=== PATIENT | male | born 1965 | race American Indian/Alaskan Native ===

== ENCOUNTER 2017-07-28 23:56 | Inpatient (IN) | payer OTHER ==
[2017-07-29 01:44] LABS: BUN/Creatinine Ratio 13; Blood Urea Nitrogen 14 mg/dL (9-20); Hemolysis Index 4
[2017-07-29 01:51] LABS: Basophils % (Auto) 0.4 % (0.0-1.8); Eosinophils % (Auto) 0.4 % (0.0-4.3); Hematocrit 40.2 % (35.5-45.6); Hemoglobin 13.7 gm/dl (11.8-15.2); Lymphocytes # (Auto) 2.2 K/mm3 (1.2-5.4); Mean Corpuscular HGB Conc 34 % (32-34); Mean Corpuscular Hemoglobin 33 pg (28-32); Mean Corpuscular Volume 96 fl (84-94); Monocytes # (Auto) 0.4 K/mm3 (0.0-0.8); Monocytes % (Auto) 7.2 % (0.0-7.3); Platelet Count 205 K/mm3 (140-440); Red Blood Count 4.21 M/mm3 (3.65-5.03); Red Cell Distribution Width 13.8 % (13.2-15.2)
[2017-07-29] MEDS ORDERED: NACL 0.9% 1000 ML 1,000 ML IV ONE (01:55)
[2017-07-29] MEDS ORDERED: D50W (25GM) Syringe IV PRN (04:01)
--- NOTE | 2017-07-29 04:10 | Emergency Department Report ---
HPI - General Chief Complaint: Hyperglycemia Time Seen by Provider: 07/29/17 03:54 - HPI HPI: The patient is a 52-year-old male with a history of diabetes, who presents for evaluation of abdominal pain, nausea, vomiting. The patient reports 6 days of progressive generalized abdominal pain, crampy in quality, moderate severity, exacerbated with retching, and associated with multiple episodes of nausea and nonbilious, nonbloody emesis. He also has experienced polyuria, severe thirst, and generalized weakness. The patient denies fever, headache, neck pain, paresthesias, focal motor weakness, blurry vision, ear pain, tinnitus, chest pain, hemoptysis, dyspnea. ED Past Medical Hx - Past Medical History Previous Medical History?: Yes Hx Diabetes: Yes Additional medical history: A fib, hyperlipidemia - Surgical History Past Surgical History?: No - Social History Smoking Status: Never Smoker Substance Use Type: None ED Review of Systems ROS: Stated complaint: POSS DKA,ABD PAIN Other details as noted in HPI Constitutional: reports weakness denies: fever ENT: denies: throat or neck pain Respiratory: denies: cough, shortness of breath Cardiovascular: denies: chest pain Endocrine: denies unexplained weight loss or gain Gastrointestinal: reports abdominal pain, nausea Genitourinary: denies: dysuria Musculoskeletal: denies: leg swelling Skin: denies: rash Neurological: denies: headache Hematological/Lymphatic: denies: easy bleeding or easy bruising Psych: denies sadness or hopelessness Physical Exam - Physical Exam Vital Signs: Vital Signs 07/29/17 00:34 Temperature 98.0 F Pulse Rate 92 H Respiratory 17 Rate Blood Pressure 105/73 O2 Sat by Pulse 100 Oximetry Physical Exam: General: well-nourished, well-developed, no acute distress Head: Normocephalic, atraumatic Eyes: normal sclera ENT: Mucous membranes are pale and dry Neck: No neck stiffness, no cervical adenopathy Respiratory: Breath sounds equal bilaterally, no wheezing, rales, or rhonchi Cardio: S1 and S2 present, no murmurs, rubs, gallops, capillary refill is delayed Abdomen: Normoactive bowel sounds, soft abdomen, generalized tenderness to palpation present, no rigidity, no guarding or rebound tenderness Chest WALL/Back: No tenderness to palpation of the chest wall, no CVA tenderness with percussion Musc: No pitting edema Skin: No rash Neuro: no facial drooping, normal speech Psych: Normal affect ED Course Vital Signs 07/29/17 00:34 Temperature 98.0 F Pulse Rate 92 H Respiratory 17 Rate Blood Pressure 105/73 O2 Sat by Pulse 100 Oximetry ED Medical Decision Making - Lab Data Result diagrams: 07/29/17 00:59 07/29/17 00:59 - Medical Decision Making The patient was seen and examined by myself. The patient is placed on a mh teacher and continuous pulse ox. On initial evaluation, the patient was found to be in no distress. Evaluation orders were placed. Per EMS, the patient was found to have a blood sugar of 700 at the [place] urgent care facility that he was transferred to hear from. Lab results here reveal elevated blood sugar 274, increased anion gap, low bicarbonate, and low pH of 7.22, consistent with diabetic ketoacidosis. The patient is continued on an insulin infusion for treatment of DKA. The on-call [facility] physician Dr. Cervantes was contacted. She agreed to admission of the patient to this Hospital facility. The on-call hospitalist service was contacted. They agreed to admit the patient for further treatment and close monitoring. The ED admit order was placed. The patient was admitted in guarded condition. Critical care attestation.: If time is entered above; I have spent that time in minutes in the direct care of this critically ill patient, excluding procedure time. ED Disposition Clinical Impression: Dehydration, Acute generalized abdominal pain DKA (diabetic ketoacidosis) Qualifiers: Diabetes mellitus type: type 2 Diabetes mellitus complication detail: without coma Qualified Code(s): E11.10 - Type 2 diabetes mellitus with ketoacidosis without coma Disposition: OP ADMIT IP TO THIS HOSP Is pt being admited?: Yes Does the pt Need Aspirin: Yes Condition: Serious Instructions: Diabetic Ketoacidosis (ED) Referrals: [facility] [Other] - 3-5 Days Time of Disposition: 04:03
[2017-07-29 04:47] LABS: Magnesium 1.9 mg/dL (1.7-2.3)
[2017-07-29 04:48] LABS: BUN/Creatinine Ratio 13; Blood Urea Nitrogen 13 mg/dL (9-20); Calcium 8.5 mg/dL (8.4-10.2); Hemolysis Index 9
[2017-07-29] MEDS ORDERED: TYLENOL PO PRN (04:51)
[2017-07-29] MEDS ORDERED: ZOFRAN IV PRN (04:51)
[2017-07-29] MEDS ORDERED: DULCOLAX PR PRN (04:51)
[2017-07-29] MEDS ORDERED: MILK OF MAGNESIA PO PRN (04:51)
[2017-07-29 04:53] LABS: Alanine Aminotransferase 11 units/L (7-56); Albumin 3.4 g/dL (3.9-5); Lipase 25 units/L (13-60)
[2017-07-29] MEDS ORDERED: NACL 0.9% 1000 ML 2,000 ML IV SCH (05:00)
[2017-07-29] MEDS ORDERED: NovoLIN R 100 UNITS in NACL 0.9% 99 ML IV SCH (05:00)
[2017-07-29] MEDS ORDERED: D5W/0.45% NACL/KCL 20 MEQ 20 MEQ/1,000 ML BAG IV SCH (05:00)
--- NOTE | 2017-07-29 05:03 | History and Physical Report ---
History of Present Illness Date of examination: 07/29/17 Chief complaint: Nausea and vomiting History of present illness: 52-year-old -N[place]alese male with past medical history significant for diabetes mellitus, atrial fibrillation presented to the emergency department complaining of nausea and vomiting for the past 2 weeks. Patient has been taking his insulin as prescribed, but patient has been drinking soda and Gatorade thinking, to replace that that he lose through vomiting. Patient has been polyuric and has polydipsia. Patient denied abdominal pain, fever, dysuria , chest pain. Patient is a [place] patient and [place] agreed with admission to our service. In the emergency department workup was done and patient was found to be in DKA. He was started with DKA protocol and will be admitted to ICU. REVIEW OF SYSTEMS: GENERAL: no weight change, no fatigue, no fever HEAD: no head ache EYES: no blurry vision, no acute visual loss EARS: no hearing loss, no discharge, no earache NOSE: no stuffiness, no sneezing, no discharge MOUTH, THROAT AND NECK: no bleeding gums, no sore throat, no swollen neck CARDIAC: no palpitations, no dyspnea on exertion, no orthopnea, no PND, no edema , no chest pain RESPIRATORY: no shortness of breath, no wheeze, no cough, no sputum, no hemoptysis, no asthma GI: As stated in the HPI. URINARY: no change in frequency, no urgency, no polyuria, no hematuria, no incontinence MUSCULOSKELETAL: no muscle weakness, no pain, no joint stiffness NEUROLOGIC: no loss of sensation/numbness, no tingling, no tremors, no weakness/ paralysis HEMATOLOGIC: no anemia, no easy bruising SKIN: no rashes ENDOCRINE: no heat/cold intolerance, no polyuria, no polydipsia, no thyroid problems, +diabetes PSYCHIATRIC: no anxiety, no depression, no suicidal ideations Past History Past Medical History: atrial fib, diabetes Past Surgical History: No surgical history Social history: full code. denies: smoking, alcohol abuse, prescription drug abuse, IV drug use Family history: no significant family history Medications and Allergies Allergies Allergy/AdvReac Type Severity Reaction Status Date / Time No Known Allergies Allergy Unverified 07/29/17 00:55 Active Meds: Active Medications Acetaminophen (Tylenol) 650 mg PO Q4H PRN PRN Reason: Pain MILD(1-3)/Fever >100.5/RECINOS Bisacodyl (Dulcolax) 10 mg MD QDAY PRN PRN Reason: Constipation unrelieved by MOM Dextrose (D50w (25gm) Syringe) 0 ml IV PRN PRN PRN Reason: Hypoglycemia Heparin Sodium (Porcine) (Heparin) 5,000 unit SUB-Q Q8HR MARLENI Potassium Chloride/Dextrose/Sod Cl (D5w/0.45% Nacl/Kcl 20 Meq) 20 meq in 1,000 mls @ 125 mls/hr IV DIRECT MARLENI Insulin Human Regular 100 (units/ Sodium Chloride) 100 mls @ 1 mls/hr IV TITR MARLENI; 1 UNITS/HR PRN Reason: Protocol Sodium Chloride (Nacl 0.9% 1000 Ml) 2,000 mls @ 999 mls/hr IV DIRECT MARLENI Magnesium Hydroxide (Milk Of Magnesia) 30 ml PO Q4H PRN PRN Reason: Constipation Ondansetron HCl (Zofran) 4 mg IV Q8H PRN PRN Reason: N/V unrelieved by Reglan Exam - Physical Exam Narrative exam: Not in cardiopulmonary distress. The patient appeared well nourished and normally developed. Vital signs as documented. Head exam is unremarkable. No scleral icterus . Neck is without jugular venous distension, thyromegaly, or carotid bruits. Lungs are clear to auscultation. Cardiac exam reveals irregular rate and Rhythm. Abdominal exam reveals normal bowel sounds, no masses, no organomegaly and no aortic enlargement. Extremities are nonedematous and both femoral and pedal pulses are normal. 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 No focal weakness. - Constitutional Vitals: Temp Pulse Resp BP Pulse Ox 98.0 F 84 15 105/72 98 07/29/17 00:34 07/29/17 04:30 07/29/17 04:30 07/29/17 04:30 07/29/17 04:30 Results - Labs CBC & Chem 7: 07/29/17 00:59 07/29/17 04:08 Labs: Laboratory Last Values WBC 5.7 K/mm3 (4.5-11.0) 07/29/17 00:59 RBC 4.21 M/mm3 (3.65-5.03) 07/29/17 00:59 Hgb 13.7 gm/dl (11.8-15.2) 07/29/17 00:59 Hct 40.2 % (35.5-45.6) 07/29/17 00:59 MCV 96 fl (84-94) H 07/29/17 00:59 MCH 33 pg (28-32) H 07/29/17 00:59 MCHC 34 % (32-34) 07/29/17 00:59 RDW 13.8 % (13.2-15.2) 07/29/17 00:59 Plt Count 205 K/mm3 (140-440) 07/29/17 00:59 Lymph % (Auto) 38.0 % (13.4-35.0) H 07/29/17 00:59 [place] % (Auto) 7.2 % (0.0-7.3) 07/29/17 00:59 Eos % (Auto) 0.4 % (0.0-4.3) 07/29/17 00:59 Baso % (Auto) 0.4 % (0.0-1.8) 07/29/17 00:59 Lymph # 2.2 K/mm3 (1.2-5.4) 07/29/17 00:59 [place] # 0.4 K/mm3 (0.0-0.8) 07/29/17 00:59 Eos # 0.0 K/mm3 (0.0-0.4) 07/29/17 00:59 Baso # 0.0 K/mm3 (0.0-0.1) 07/29/17 00:59 Seg Neutrophils % 54.0 % (40.0-70.0) 07/29/17 00:59 Seg Neutrophils # 3.1 K/mm3 (1.8-7.7) 07/29/17 00:59 VBG pH 7.227 (7.320-7.420) L 07/29/17 00:59 Sodium 141 mmol/L (137-145) 07/29/17 04:08 Potassium 4.3 mmol/L (3.6-5.0) 07/29/17 04:08 Chloride 103.6 mmol/L (98-107) 07/29/17 04:08 Carbon Dioxide 19 mmol/L (22-30) L 07/29/17 04:08 Anion Gap 23 mmol/L 07/29/17 04:08 BUN 13 mg/dL (9-20) 07/29/17 04:08 Creatinine 1.0 mg/dL (0.8-1.5) 07/29/17 04:08 Estimated GFR > 60 ml/min 07/29/17 04:08 BUN/Creatinine Ratio 13 % 07/29/17 04:08 Glucose 234 mg/dL (75-100) H 07/29/17 04:08 POC Glucose 244 (70-105) H 07/29/17 02:54 Calcium 8.5 mg/dL (8.4-10.2) 07/29/17 04:08 Phosphorus 2.50 mg/dL (2.5-4.5) 07/29/17 04:08 Magnesium 1.90 mg/dL (1.7-2.3) 07/29/17 04:08 Total Bilirubin 0.30 mg/dL (0.1-1.2) 07/29/17 04:08 AST 8 units/L (5-40) 07/29/17 04:08 ALT 11 units/L (7-56) 07/29/17 04:08 Alkaline Phosphatase 60 units/L (35-129) 07/29/17 04:08 Total Protein 5.6 g/dL (6.3-8.2) L 07/29/17 04:08 Albumin 3.4 g/dL (3.9-5) L 07/29/17 04:08 Albumin/Globulin Ratio 1.5 % 07/29/17 04:08 Lipase 25 units/L (13-60) 07/29/17 04:08 Assessment and Plan Assessment and plan: DKA - Patient is being managed for DKA according to DKA protocol\ - Pinion Sorter consulted to admit to ICU A. fib - Rate controlled - Patient is on metoprolol at home, has metoprolol for now because of his low blood pressure, can be restarted after blood pressure is normalized Hypertension - due to DKA DVT prophylaxis - Heparin Disposition - Admit to ICU
[2017-07-29 05:05] LABS: Bilirubin,Direct < 0.2 mg/dL (0-0.2)
--- NOTE | 2017-07-29 05:24 | XRay Report ---
FINAL REPORT EXAM: XR CHEST 1V AP HISTORY: DKA. TECHNIQUE: A single frontal portable radiograph of the chest was obtained. No prior studies are available for comparison. FINDINGS: The cardiac silhouette and mediastinum are within normal limits. The lungs are clear bilaterally, without focal infiltrate or effusion. There is no pneumothorax. No significant osseous abnormalities are identified. IMPRESSION: No active disease seen in the chest.
[2017-07-29] MEDS: HEPARIN SUB-Q SCH ×3 (07:44→22:05)
[2017-07-29 08:08] LABS: BUN/Creatinine Ratio 13; Blood Urea Nitrogen 12 mg/dL (9-20); Calcium 8.5 mg/dL (8.4-10.2); Hemolysis Index 13
--- NOTE | 2017-07-29 13:42 | Consultation ---
History of Present Illness Consult date: 07/29/17 Requesting physician: GERALD AHUJA Reason for consult: other (DKA) History of present illness: PULMONARY/CCM CONSULT NOTE (Full dictation # [id number]) Please see dictated notes for full details Past History Past Medical History: atrial fib, diabetes Past Surgical History: No surgical history Social history: full code. denies: smoking, alcohol abuse, prescription drug abuse, IV drug use Family history: no significant family history Medications and Allergies Allergies Allergy/AdvReac Type Severity Reaction Status Date / Time No Known Allergies Allergy Unverified 07/29/17 00:55 Home Medications Medication Instructions Recorded Confirmed Last Taken Type Diltiazem ER 120 mg PO ONCE 07/29/17 07/29/17 3 Months Ago History ~04/28/17 Gabapentin 300 cap PO HS 07/29/17 07/29/17 1 Year Ago History ~07/29/16 Metoclopramide 10 mg PO QID 07/29/17 07/29/17 1 Day Ago History ~07/28/17 Metoprolol Succinate 25 mg PO QDAY 07/29/17 07/29/17 1 Day Ago History ~07/28/17 Nasacort SPRAY 55 mcg INHALATION ONCE 07/29/17 07/29/17 1 Year Ago History ~07/29/16 Pantoprazole [Protonix TAB] 20 mg PO ONCE 07/29/17 07/29/17 3 Months Ago History ~04/28/17 Rivaroxaban [Xarelto] 20 mg PO QDAY 07/29/17 07/29/17 1 Day Ago History ~07/28/17 metFORMIN 1,000 mg PO BID 07/29/17 07/29/17 1 Day Ago History ~07/28/17 AtorvaSTATin 40 mg PO DAILY #30 08/01/17 Unknown Rx Insulin Glargine,Hum.rec.anlog 95 units SQ HS 30 Days vial 08/01/17 Unknown Rx [Lantus] Insulin Regular, Human Inj 0 unit SQ AC #1 vial 08/01/17 Unknown Rx [NovoLIN R Inj] Metoclopramide HCl [Reglan TAB] 10 mg PO ACHS PRN 30 Days tablet 08/01/17 Unknown Rx Ondansetron [Zofran TAB] 4 mg PO Q6H PRN #30 tablet 08/01/17 Unknown Rx metFORMIN [Glucophage] 1,000 mg PO BIDDIAB #60 tablet 08/01/17 Unknown Rx Active Meds: Active Medications Acetaminophen (Tylenol) 650 mg PO Q4H PRN PRN Reason: Pain MILD(1-3)/Fever >100.5/RECINOS Bisacodyl (Dulcolax) 10 mg MO QDAY PRN PRN Reason: Constipation unrelieved by MOM Dextrose (D50w (25gm) Syringe) 0 ml IV PRN PRN PRN Reason: Hypoglycemia Heparin Sodium (Porcine) (Heparin) 5,000 unit SUB-Q Q8HR MARLENI Last Admin: 07/29/17 07:44 Dose: 5,000 unit Potassium Chloride/Dextrose/Sod Cl (D5w/0.45% Nacl/Kcl 20 Meq) 20 meq in 1,000 mls @ 125 mls/hr IV DIRECT MARLENI Last Admin: 07/29/17 05:28 Dose: 125 mls/hr Insulin Human Regular 100 (units/ Sodium Chloride) 100 mls @ 1 mls/hr IV TITR MARLENI; 1 UNITS/HR PRN Reason: Protocol Last Titration: 07/29/17 12:00 Dose: 2 units/hr, 2 mls/hr Sodium Chloride (Nacl 0.9% 1000 Ml) 2,000 mls @ 999 mls/hr IV DIRECT MARLENI Stop: 07/30/17 07:01 Magnesium Hydroxide (Milk Of Magnesia) 30 ml PO Q4H PRN PRN Reason: Constipation Ondansetron HCl (Zofran) 4 mg IV Q8H PRN PRN Reason: N/V unrelieved by Reglan Physical Examination Vital signs: Vital Signs Pulse Ox 87 07/29/17 00:12 Results - Laboratory Findings CBC and BMP: 07/29/17 00:59 07/29/17 07:28 Abnormal lab findings: Abnormal Labs 07/29/17 07/29/17 07/29/17 00:59 00:59 00:59 MCV 96 H MCH 33 H Lymph % (Auto) 38.0 H VBG pH 7.227 L Carbon Dioxide 19 L Glucose 276 H POC Glucose Calcium 8.0 L Total Protein Albumin 07/29/17 07/29/17 07/29/17 02:54 04:08 04:08 MCV MCH Lymph % (Auto) VBG pH Carbon Dioxide 19 L Glucose 234 H POC Glucose 244 H Calcium Total Protein 5.6 L Albumin 3.4 L 07/29/17 07/29/17 07/29/17 05:21 06:16 07:28 MCV MCH Lymph % (Auto) VBG pH Carbon Dioxide 21 L Glucose 144 H POC Glucose 148 H 123 H Calcium Total Protein Albumin
[2017-07-29] MEDS ORDERED: ZOFRAN PO PRN (14:30)
[2017-07-29] MEDS ORDERED: NASACORT INHALATION SCH (14:30)
--- NOTE | 2017-07-29 14:40 | Progress Note ---
Assessment and Plan Assessment and plan: 52-year-old -[place] male with past medical history significant for diabetes mellitus, atrial fibrillation presented to the emergency department complaining of nausea and vomiting for the past 2 weeks found to be in DKA, admits to non compliance with diabetic diet. States that he frequently has bouts of n/v but never had gastric emptying study Follows with his PCP at [facility] Problems * DKA uncontrolled IDDM type 2 hld Afib htn supected gastroparesis intractable N.V PLAN * transition to subq insulins today, check a1c * patient has not been taking statin, will check lipid panel * restart home meds * gastric emptying study ordered The high probability of a clinically significant, sudden or life threatening deterioration of the [endocrine] system(s) required my full and direct attention , intervention and personal management. The aggregate critical care time was [33 ] minutes. This time is in addition to time spent performing reported procedures but includes the following: [] Data Review and interpretation [] Patient assessment and monitoring of vital signs [] Documentation [] Medication orders and management History Interval history: still c.o nausea and mild abdominal pain no fever, no cp, no sob Hospitalist Physical - Constitutional Vitals: Temp Pulse Resp BP Pulse Ox 97.9 F 82 12 106/74 100 07/29/17 12:00 07/29/17 12:00 07/29/17 12:00 07/29/17 12:00 07/29/17 12:00 General appearance: Present: no acute distress - EENT Eyes: Present: PERRL ENT: hearing intact - Neck Neck: Present: supple - Respiratory Respiratory effort: normal Respiratory: bilateral: CTA - Cardiovascular Rhythm: regular Heart Sounds: Present: S1 & S2 - Extremities Extremities: no ischemia Peripheral Pulses: within normal limits - Abdominal General gastrointestinal: soft, non-tender - Integumentary Integumentary: Present: clear, warm, dry - Psychiatric Psychiatric: appropriate mood/affect, intact judgment & insight - Neurologic Neurologic: CNII-XII intact, moves all extremities Results - Labs CBC & Chem 7: 07/29/17 00:59 07/29/17 07:28 Labs: Laboratory Last Values WBC 5.7 K/mm3 (4.5-11.0) 07/29/17 00:59 RBC 4.21 M/mm3 (3.65-5.03) 07/29/17 00:59 Hgb 13.7 gm/dl (11.8-15.2) 07/29/17 00:59 Hct 40.2 % (35.5-45.6) 07/29/17 00:59 MCV 96 fl (84-94) H 07/29/17 00:59 MCH 33 pg (28-32) H 07/29/17 00:59 MCHC 34 % (32-34) 07/29/17 00:59 RDW 13.8 % (13.2-15.2) 07/29/17 00:59 Plt Count 205 K/mm3 (140-440) 07/29/17 00:59 Lymph % (Auto) 38.0 % (13.4-35.0) H 07/29/17 00:59 [place] % (Auto) 7.2 % (0.0-7.3) 07/29/17 00:59 Eos % (Auto) 0.4 % (0.0-4.3) 07/29/17 00:59 Baso % (Auto) 0.4 % (0.0-1.8) 07/29/17 00:59 Lymph # 2.2 K/mm3 (1.2-5.4) 07/29/17 00:59 [place] # 0.4 K/mm3 (0.0-0.8) 07/29/17 00:59 Eos # 0.0 K/mm3 (0.0-0.4) 07/29/17 00:59 Baso # 0.0 K/mm3 (0.0-0.1) 07/29/17 00:59 Seg Neutrophils % 54.0 % (40.0-70.0) 07/29/17 00:59 Seg Neutrophils # 3.1 K/mm3 (1.8-7.7) 07/29/17 00:59 VBG pH 7.227 (7.320-7.420) L 07/29/17 00:59 Sodium 142 mmol/L (137-145) 07/29/17 07:28 Potassium 4.1 mmol/L (3.6-5.0) 07/29/17 07:28 Chloride 105.9 mmol/L (98-107) 07/29/17 07:28 Carbon Dioxide 21 mmol/L (22-30) L 07/29/17 07:28 Anion Gap 19 mmol/L 07/29/17 07:28 BUN 12 mg/dL (9-20) 07/29/17 07:28 Creatinine 0.9 mg/dL (0.8-1.5) 07/29/17 07:28 Estimated GFR > 60 ml/min 07/29/17 07:28 BUN/Creatinine Ratio 13 % 07/29/17 07:28 Glucose 144 mg/dL (75-100) H 07/29/17 07:28 POC Glucose 163 (70-105) H 07/29/17 12:05 Lactic Acid 1.20 mmol/L (0.7-2.0) 07/29/17 07:28 Calcium 8.5 mg/dL (8.4-10.2) 07/29/17 07:28 Phosphorus 2.50 mg/dL (2.5-4.5) 07/29/17 04:08 Magnesium 1.90 mg/dL (1.7-2.3) 07/29/17 04:08 Total Bilirubin 0.30 mg/dL (0.1-1.2) 07/29/17 04:08 Direct Bilirubin < 0.2 mg/dL (0-0.2) 07/29/17 04:08 Indirect Bilirubin 0.1 mg/dL 07/29/17 04:08 AST 8 units/L (5-40) 07/29/17 04:08 ALT 11 units/L (7-56) 07/29/17 04:08 Alkaline Phosphatase 60 units/L (35-129) 07/29/17 04:08 Total Protein 5.6 g/dL (6.3-8.2) L 07/29/17 04:08 Albumin 3.4 g/dL (3.9-5) L 07/29/17 04:08 Albumin/Globulin Ratio 1.5 % 07/29/17 04:08 Lipase 25 units/L (13-60) 07/29/17 04:08
[2017-07-29] MEDS: NOVOLOG SUB-Q SCH ×2 (17:28→22:45)
[2017-07-29] MEDS: REGLAN PO SCH ×2 (17:29→22:05)
[2017-07-29] MEDS: GLUCOPHAGE PO SCH (17:29)
[2017-07-29] MEDS: PROTONIX PO SCH (17:29)
[2017-07-29] MEDS ORDERED: NON-FORMULARY (Metoclopramide 10 MG) PO SCH (18:00)
[2017-07-29] MEDS ORDERED: HUMULIN N SUB-Q SCH (22:00)
[2017-07-29] MEDS ORDERED: NON-FORMULARY (Metformin 1,000 MG) PO SCH (22:00)
[2017-07-29] MEDS ORDERED: GABAPENTIN PO SCH (22:00)
[2017-07-30] MEDS: HEPARIN SUB-Q SCH ×2 (06:18→21:55)
[2017-07-30 08:28] LABS: Chol/HDL Ratio 3.34 %
--- NOTE | 2017-07-30 08:48 | Progress Note ---
Assessment and Plan Assessment and plan: 52-year-old -Maltese male with past medical history significant for diabetes mellitus, atrial fibrillation presented to the emergency department complaining of nausea and vomiting for the past 2 weeks found to be in DKA, admits to non compliance with diabetic diet. States that he frequently has bouts of n/v but never had gastric emptying study Follows with his PCP at [facility] Problems * DKA uncontrolled IDDM type 2 hld Afib htn supected gastroparesis intractable N.V PLAN * change from NPH to Levemir and ssi, poorly controlled a1c of 17 * LDL was 130, Statin was restarted * continue home meds * heart rate is well controlled * gastric emptying study pending * triage licensed practical nurse consult The high probability of a clinically significant, sudden or life threatening deterioration of the [endocrine] system(s) required my full and direct attention , intervention and personal management. The aggregate critical care time was [33 ] minutes. This time is in addition to time spent performing reported procedures but includes the following: [] Data Review and interpretation [] Patient assessment and monitoring of vital signs [] Documentation [] Medication orders and management History Interval history: nausea has resolved abdominal pain has resolved no fever, no cp, no sob Hospitalist Physical - Physical exam Narrative exam: General appearance: Present: no acute distress - EENT Eyes: Present: PERRL ENT: hearing intact - Neck Neck: Present: supple - Respiratory Respiratory effort: normal Respiratory: bilateral: CTA - Cardiovascular Rhythm: regular Heart Sounds: Present: S1 & S2 - Extremities Extremities: no ischemia Peripheral Pulses: within normal limits - Abdominal General gastrointestinal: soft, non-tender - Integumentary Integumentary: Present: clear, warm, dry - Psychiatric Psychiatric: appropriate mood/affect, intact judgment & insight - Neurologic Neurologic: CNII-XII intact, moves all extremities - Constitutional Vitals: Temp Pulse Resp BP Pulse Ox 98.6 F 90 18 106/72 96 07/30/17 08:07 07/30/17 08:07 07/30/17 08:07 07/30/17 08:07 07/30/17 08:07 Results - Labs CBC & Chem 7: 07/29/17 00:59 07/29/17 07:28 Labs: Laboratory Last Values WBC 5.7 K/mm3 (4.5-11.0) 07/29/17 00:59 RBC 4.21 M/mm3 (3.65-5.03) 07/29/17 00:59 Hgb 13.7 gm/dl (11.8-15.2) 07/29/17 00:59 Hct 40.2 % (35.5-45.6) 07/29/17 00:59 MCV 96 fl (84-94) H 07/29/17 00:59 MCH 33 pg (28-32) H 07/29/17 00:59 MCHC 34 % (32-34) 07/29/17 00:59 RDW 13.8 % (13.2-15.2) 07/29/17 00:59 Plt Count 205 K/mm3 (140-440) 07/29/17 00:59 Lymph % (Auto) 38.0 % (13.4-35.0) H 07/29/17 00:59 [place] % (Auto) 7.2 % (0.0-7.3) 07/29/17 00:59 Eos % (Auto) 0.4 % (0.0-4.3) 07/29/17 00:59 Baso % (Auto) 0.4 % (0.0-1.8) 07/29/17 00:59 Lymph # 2.2 K/mm3 (1.2-5.4) 07/29/17 00:59 [place] # 0.4 K/mm3 (0.0-0.8) 07/29/17 00:59 Eos # 0.0 K/mm3 (0.0-0.4) 07/29/17 00:59 Baso # 0.0 K/mm3 (0.0-0.1) 07/29/17 00:59 Seg Neutrophils % 54.0 % (40.0-70.0) 07/29/17 00:59 Seg Neutrophils # 3.1 K/mm3 (1.8-7.7) 07/29/17 00:59 VBG pH 7.227 (7.320-7.420) L 02 00:59 Sodium 142 mmol/L (137-145) 07/29/17 07:28 Potassium 4.1 mmol/L (3.6-5.0) 07/29/17 07:28 Chloride 105.9 mmol/L (98-107) 07/29/17 07:28 Carbon Dioxide 21 mmol/L (22-30) L 07/29/17 07:28 Anion Gap 19 mmol/L 07/29/17 07:28 BUN 12 mg/dL (9-20) 07/29/17 07:28 Creatinine 0.9 mg/dL (0.8-1.5) 07/29/17 07:28 Estimated GFR > 60 ml/min 07/29/17 07:28 BUN/Creatinine Ratio 13 % 07/29/17 07:28 Glucose 144 mg/dL (75-100) H 07/29/17 07:28 POC Glucose 172 (70-105) H 07/30/17 06:14 Lactic Acid 1.20 mmol/L (0.7-2.0) 07/29/17 07:28 Calcium 8.5 mg/dL (8.4-10.2) 07/29/17 07:28 Phosphorus 2.50 mg/dL (2.5-4.5) 07/29/17 04:08 Magnesium 1.90 mg/dL (1.7-2.3) 07/29/17 04:08 Total Bilirubin 0.30 mg/dL (0.1-1.2) 07/29/17 04:08 Direct Bilirubin < 0.2 mg/dL (0-0.2) 07/29/17 04:08 Indirect Bilirubin 0.1 mg/dL 07/29/17 04:08 AST 8 units/L (5-40) 07/29/17 04:08 ALT 11 units/L (7-56) 07/29/17 04:08 Alkaline Phosphatase 60 units/L (35-129) 07/29/17 04:08 Total Protein 5.6 g/dL (6.3-8.2) L 07/29/17 04:08 Albumin 3.4 g/dL (3.9-5) L 07/29/17 04:08 Albumin/Globulin Ratio 1.5 % 07/29/17 04:08 Triglycerides 252 mg/dL (2-149) H 07/30/17 05:53 Cholesterol 254 mg/dL (50-199) H 07/30/17 05:53 LDL Cholesterol Direct 128 mg/dL (50-130) 07/30/17 05:53 HDL Cholesterol 76 mg/dL (40-59) H 07/30/17 05:53 Cholesterol/HDL Ratio 3.34 % 07/30/17 05:53 Lipase 25 units/L (13-60) 07/29/17 04:08
[2017-07-30] MEDS: FLONASE NS SCH (09:06)
[2017-07-30] MEDS: NOVOLOG SUB-Q SCH ×4 (09:07→22:03)
[2017-07-30] MEDS: GLUCOPHAGE PO SCH ×2 (09:09→18:37)
[2017-07-30] MEDS: REGLAN PO SCH ×4 (09:09→21:58)
[2017-07-30] MEDS: TOPROL XL PO SCH (09:10)
[2017-07-30] MEDS: CARDIZEM CD PO SCH (09:10)
[2017-07-30 09:53] LABS: Bacteria,Urine 1+ /HPF (Negative); Bilirubin,Urine NEG (Negative); Blood,Urine NEG (Negative); Color,Urine Yellow (Yellow); Mucus,Urine 2+ /HPF; Nitrite,Urine NEG (Negative); Protein,Urine <15 mg/dL mg/dL (Negative)
[2017-07-30] MEDS ORDERED: NON-FORMULARY (Atorvastatin 40 MG) PO SCH (10:00)
[2017-07-30] MEDS ORDERED: DILTIAZEM 120 MG PO SCH (10:00)
[2017-07-30] MEDS ORDERED: METOPROLOL SUCCINATE 25 MG PO SCH (10:00)
[2017-07-30] MEDS ORDERED: INSULIN ISOPHANE SUB-Q SCH (10:00)
[2017-07-30] MEDS ORDERED: XARELTO PO SCH (10:00)
--- NOTE | 2017-07-30 13:35 | Progress Note ---
Assessment and Plan Patient resting on room air. No complaint of chest pain or shortness of breath.O2 saturation 100% on room air. - Patient Problems (1) DKA (diabetic ketoacidosis) Current Visit: Yes Status: Acute Qualifiers: Diabetes mellitus type: type 2 Diabetes mellitus complication detail: without coma Qualified Code(s): E11.10 - Type 2 diabetes mellitus with ketoacidosis without coma Plan to address problem: Improving. Repeating blood gases tomorrow. (2) Acute generalized abdominal pain Current Visit: Yes Status: Acute Plan to address problem: Adominal pain is getting better. (3) Dehydration Current Visit: Yes Status: Acute Plan to address problem: Improved. Subjective Date of service: 07/30/17 Interval history: Patient resting on room air. No complaint of chest pain or shortness of breath.O2 saturation 100% on room air. Objective Vital Signs - 12hr 07/30/17 07/30/17 07/30/17 08:07 09:10 11:48 Temperature 98.6 F Pulse Rate 90 Pulse Rate [ 90 From Monitor] Respiratory 18 16 Rate Blood Pressure 106/72 106/72 O2 Sat by Pulse 96 Oximetry Constitutional: no acute distress, alert Eyes: non-icteric ENT: oropharynx moist Neck: supple, no lymphadenopathy Ascultation: Bilateral: clear Cardiovascular: regular rate and rhythm Gastrointestinal: normoactive bowel sounds, non-tender Integumentary: normal Extremities: no cyanosis, no edema Neurologic: normal mental status, non-focal exam, pupils equal and round, CN II- XII normal Psychiatric: mood appropriate CBC and BMP: 07/29/17 00:59 07/29/17 07:28 Abnormal lab findings: Abnormal Labs 07/29/17 07/29/17 07/29/17 00:59 00:59 00:59 MCV 96 H MCH 33 H Lymph % (Auto) 38.0 H VBG pH 7.227 L Carbon Dioxide 19 L Glucose 276 H POC Glucose Hemoglobin A1c Calcium 8.0 L Total Protein Albumin Triglycerides Cholesterol HDL Cholesterol Ur Specific [place] Urine WBC (Auto) 07/29/17 07/29/17 07/29/17 02:54 04:08 04:08 MCV MCH Lymph % (Auto) VBG pH Carbon Dioxide 19 L Glucose 234 H POC Glucose 244 H Hemoglobin A1c Calcium Total Protein 5.6 L Albumin 3.4 L Triglycerides Cholesterol HDL Cholesterol Ur Specific [place] Urine WBC (Auto) 07/29/17 07/29/17 07/29/17 05:21 06:16 07:28 MCV MCH Lymph % (Auto) VBG pH Carbon Dioxide 21 L Glucose 144 H POC Glucose 148 H 123 H Hemoglobin A1c Calcium Total Protein Albumin Triglycerides Cholesterol HDL Cholesterol Ur Specific [place] Urine WBC (Auto) 07/29/17 07/29/17 07/29/17 07:52 09:13 09:59 MCV MCH Lymph % (Auto) VBG pH Carbon Dioxide Glucose POC Glucose 131 H 154 H 168 H Hemoglobin A1c Calcium Total Protein Albumin Triglycerides Cholesterol HDL Cholesterol Ur Specific [place] Urine WBC (Auto) 07/29/17 07/29/17 07/29/17 11:15 12:05 13:28 MCV MCH Lymph % (Auto) VBG pH Carbon Dioxide Glucose POC Glucose 168 H 163 H 165 H Hemoglobin A1c Calcium Total Protein Albumin Triglycerides Cholesterol HDL Cholesterol Ur Specific [place] Urine WBC (Auto) 07/29/17 07/29/17 07/29/17 13:56 16:07 22:26 MCV MCH Lymph % (Auto) VBG pH Carbon Dioxide Glucose POC Glucose 158 H 230 H 274 H Hemoglobin A1c Calcium Total Protein Albumin Triglycerides Cholesterol HDL Cholesterol Ur Specific [place] Urine WBC (Auto) 07/30/17 07/30/17 07/30/17 05:53 05:53 06:14 MCV MCH Lymph % (Auto) VBG pH Carbon Dioxide Glucose POC Glucose 172 H Hemoglobin A1c 17.0 H Calcium Total Protein Albumin Triglycerides 252 H Cholesterol 254 H HDL Cholesterol 76 H Ur Specific [place] Urine WBC (Auto) 07/30/17 07/30/17 11:20 Unknown MCV MCH Lymph % (Auto) VBG pH Carbon Dioxide Glucose POC Glucose 266 H Hemoglobin A1c Calcium Total Protein Albumin Triglycerides Cholesterol HDL Cholesterol Ur Specific [place] 1.036 H Urine WBC (Auto) 9.0 H Chest x-ray: report reviewed (No active disease reported in the chart,), image reviewed
[2017-07-30] MEDS ORDERED: LEVEMIR SUB-Q SCH (22:00)
[2017-07-31] MEDS: REGLAN PO SCH ×4 (10:17→22:12)
[2017-07-31] MEDS: NOVOLOG SUB-Q SCH ×4 (10:22→23:30)
[2017-07-31] MEDS: CARDIZEM CD PO SCH (10:22)
[2017-07-31] MEDS: GLUCOPHAGE PO SCH ×2 (10:22→17:34)
[2017-07-31] MEDS: TOPROL XL PO SCH (10:23)
[2017-07-31] MEDS: FLONASE NS SCH (10:23)
[2017-07-31] MEDS ORDERED: IMODIUM PO PRN (13:40)
[2017-07-31] MEDS ORDERED: LOMOTIL PO PRN (13:40)
[2017-07-31] MEDS: FLAGYL 500 MG/100 ML 500 MG/100 ML BAG IV SCH ×2 (14:09→21:49)
[2017-07-31] MEDS: HEPARIN SUB-Q SCH ×3 (14:10→22:50)
--- NOTE | 2017-07-31 19:54 | Progress Note ---
Assessment and Plan Assessment and plan: 52-year-old -[place] male with past medical history significant for diabetes mellitus, atrial fibrillation presented to the emergency department complaining of nausea and vomiting for the past 2 weeks found to be in DKA, admits to non compliance with diabetic diet. States that he frequently has bouts of n/v but never had gastric emptying study Follows with his PCP at [facility] Problems * DKA uncontrolled IDDM type 2 hld Afib htn supected gastroparesis intractable N.V diarrhea, suspect infectious gastroenteritis PLAN * change from NPH to Levemir and ssi, poorly controlled a1c of 17 * LDL was 130, Statin was restarted * continue home meds * send stool for studies, empiric flagyl * heart rate is well controlled * gastric emptying study pending * reactor technician consult pending History Interval history: had 2 episodes of diarrhea this am nausea has resolved abdominal pain has resolved no fever, no cp, no sob Hospitalist Physical - Physical exam Narrative exam: General appearance: Present: no acute distress - EENT Eyes: Present: PERRL ENT: hearing intact - Neck Neck: Present: supple - Respiratory Respiratory effort: normal Respiratory: bilateral: CTA - Cardiovascular Rhythm: regular Heart Sounds: Present: S1 & S2 - Extremities Extremities: no ischemia Peripheral Pulses: within normal limits - Abdominal General gastrointestinal: soft, non-tender - Integumentary Integumentary: Present: clear, warm, dry - Psychiatric Psychiatric: appropriate mood/affect, intact judgment & insight - Neurologic Neurologic: CNII-XII intact, moves all extremities - Constitutional Vitals: Temp Pulse Resp BP Pulse Ox 98.4 F 88 18 103/68 98 07/31/17 15:34 07/31/17 15:34 07/31/17 15:34 07/31/17 15:34 07/31/17 15:34 General appearance: Present: no acute distress Results - Labs CBC & Chem 7: 07/29/17 00:59 07/29/17 07:28 Labs: Laboratory Last Values WBC 5.7 K/mm3 (4.5-11.0) 07/29/17 00:59 RBC 4.21 M/mm3 (3.65-5.03) 07/29/17 00:59 Hgb 13.7 gm/dl (11.8-15.2) 07/29/17 00:59 Hct 40.2 % (35.5-45.6) 07/29/17 00:59 MCV 96 fl (84-94) H 07/29/17 00:59 MCH 33 pg (28-32) H 07/29/17 00:59 MCHC 34 % (32-34) 07/29/17 00:59 RDW 13.8 % (13.2-15.2) 07/29/17 00:59 Plt Count 205 K/mm3 (140-440) 07/29/17 00:59 Lymph % (Auto) 38.0 % (13.4-35.0) H 07/29/17 00:59 [place] % (Auto) 7.2 % (0.0-7.3) 07/29/17 00:59 Eos % (Auto) 0.4 % (0.0-4.3) 07/29/17 00:59 Baso % (Auto) 0.4 % (0.0-1.8) 07/29/17 00:59 Lymph # 2.2 K/mm3 (1.2-5.4) 07/29/17 00:59 [place] # 0.4 K/mm3 (0.0-0.8) 07/29/17 00:59 Eos # 0.0 K/mm3 (0.0-0.4) 07/29/17 00:59 Baso # 0.0 K/mm3 (0.0-0.1) 07/29/17 00:59 Seg Neutrophils % 54.0 % (40.0-70.0) 07/29/17 00:59 Seg Neutrophils # 3.1 K/mm3 (1.8-7.7) 07/29/17 00:59 POC ABG pH 7.418 (7.35-7.45) 07/31/17 16:17 POC ABG pCO2 34.5 (35-45) L 07/31/17 16:17 POC ABG pO2 92 (80-105) 07/31/17 16:17 POC ABG HCO3 22.3 07/31/17 16:17 POC ABG Total CO2 23 07/31/17 16:17 POC ABG O2 Sat 97 07/31/17 16:17 POC ABG Base Excess -2 07/31/17 16:17 VBG pH 7.227 (7.320-7.420) L 07/29/17 00:59 FiO2 21 % 07/31/17 16:17 Sodium 142 mmol/L (137-145) 07/29/17 07:28 Potassium 4.1 mmol/L (3.6-5.0) 07/29/17 07:28 Chloride 105.9 mmol/L (98-107) 07/29/17 07:28 Carbon Dioxide 21 mmol/L (22-30) L 07/29/17 07:28 Anion Gap 19 mmol/L 07/29/17 07:28 BUN 12 mg/dL (9-20) 07/29/17 07:28 Creatinine 0.9 mg/dL (0.8-1.5) 07/29/17 07:28 Estimated GFR > 60 ml/min 07/29/17 07:28 BUN/Creatinine Ratio 13 % 07/29/17 07:28 Glucose 144 mg/dL (75-100) H 07/29/17 07:28 POC Glucose 63 (70-105) L 07/31/17 16:32 Hemoglobin A1c 17.0 % (4-6) H 07/30/17 05:53 Lactic Acid 1.20 mmol/L (0.7-2.0) 07/29/17 07:28 Calcium 8.5 mg/dL (8.4-10.2) 07/29/17 07:28 Phosphorus 2.50 mg/dL (2.5-4.5) 07/29/17 04:08 Magnesium 1.90 mg/dL (1.7-2.3) 07/29/17 04:08 Total Bilirubin 0.30 mg/dL (0.1-1.2) 07/29/17 04:08 Direct Bilirubin < 0.2 mg/dL (0-0.2) 07/29/17 04:08 Indirect Bilirubin 0.1 mg/dL 07/29/17 04:08 AST 8 units/L (5-40) 07/29/17 04:08 ALT 11 units/L (7-56) 07/29/17 04:08 Alkaline Phosphatase 60 units/L (35-129) 07/29/17 04:08 Total Protein 5.6 g/dL (6.3-8.2) L 07/29/17 04:08 Albumin 3.4 g/dL (3.9-5) L 07/29/17 04:08 Albumin/Globulin Ratio 1.5 % 07/29/17 04:08 Triglycerides 252 mg/dL (2-149) H 07/30/17 05:53 Cholesterol 254 mg/dL (50-199) H 07/30/17 05:53 LDL Cholesterol Direct 128 mg/dL (50-130) 07/30/17 05:53 HDL Cholesterol 76 mg/dL (40-59) H 07/30/17 05:53 Cholesterol/HDL Ratio 3.34 % 07/30/17 05:53 Lipase 25 units/L (13-60) 07/29/17 04:08 Urine Color Yellow (Yellow) 07/30/17 Unknown Urine Turbidity Clear (Clear) 07/30/17 Unknown Urine pH 5.0 (5.0-7.0) 07/30/17 Unknown Ur Specific [place] 1.036 (1.003-1.030) H 07/30/17 Unknown Urine Protein <15 mg/dl mg/dL (Negative) 07/30/17 Unknown Urine Glucose (UA) >=500 mg/dL (Negative) 07/30/17 Unknown Urine Ketones Tr mg/dL (Negative) 07/30/17 Unknown Urine Blood Neg (Negative) 07/30/17 Unknown Urine Nitrite Neg (Negative) 07/30/17 Unknown Urine Bilirubin Neg (Negative) 07/30/17 Unknown Urine Urobilinogen 2.0 mg/dL (<2.0) 07/30/17 Unknown Ur Leukocyte Esterase Neg (Negative) 07/30/17 Unknown Urine WBC (Auto) 9.0 /HPF (0.0-6.0) H 07/30/17 Unknown Urine RBC (Auto) 3.0 /HPF (0.0-6.0) 07/30/17 Unknown U Epithel Cells (Auto) 2.0 /HPF (0-13.0) 07/30/17 Unknown Urine Bacteria (Auto) 1+ /HPF (Negative) 07/30/17 Unknown Urine Mucus 2+ /HPF 07/30/17 Unknown
[2017-07-31] MEDS ORDERED: LEVEMIR SUB-Q SCH (22:00)
--- NOTE | 2017-07-31 23:35 | Progress Note ---
Assessment and Plan Patient resting on room air. No complaint of chest pain or shortness of breath.O2 saturation 98% on room air.Patients DKA is Improved. ABGs is good, acidosis corrected. - Patient Problems (1) DKA (diabetic ketoacidosis) Current Visit: Yes Status: Acute Qualifiers: Diabetes mellitus type: type 2 Diabetes mellitus complication detail: without coma Qualified Code(s): E11.10 - Type 2 diabetes mellitus with ketoacidosis without coma Plan to address problem: Improved. (2) Acute generalized abdominal pain Current Visit: Yes Status: Acute Plan to address problem: Adominal pain is better. (3) Dehydration Current Visit: Yes Status: Acute Plan to address problem: Improved. Subjective Date of service: 07/31/17 Interval history: Patient resting on room air. No complaint of chest pain or shortness of breath.O2 saturation 98% on room air.Patients DKA is Improved. ABGs is good, acidosis corrected. Objective Vital Signs - 12hr 07/31/17 07/31/17 15:34 20:22 Temperature 98.4 F 98.1 F Pulse Rate 88 94 H Respiratory 18 16 Rate Blood Pressure 103/68 101/62 O2 Sat by Pulse 98 98 Oximetry Constitutional: no acute distress, alert Eyes: non-icteric ENT: oropharynx moist Neck: supple, no lymphadenopathy Ascultation: Bilateral: clear Cardiovascular: regular rate and rhythm Gastrointestinal: normoactive bowel sounds, non-tender Integumentary: normal Extremities: no cyanosis, no edema Neurologic: normal mental status, non-focal exam, pupils equal and round, CN II- XII normal Psychiatric: mood appropriate CBC and BMP: 07/29/17 00:59 07/29/17 07:28 ABG, PT/INR, D-dimer: ABG POC ABG pH 7.418 (7.35-7.45) 07/31/17 16:17 POC ABG pCO2 34.5 (35-45) L 07/31/17 16:17 POC ABG pO2 92 (80-105) 07/31/17 16:17 POC ABG HCO3 22.3 07/31/17 16:17 POC ABG Total CO2 23 07/31/17 16:17 POC ABG O2 Sat 97 07/31/17 16:17 Abnormal lab findings: Abnormal Labs 07/29/17 07/29/17 07/29/17 00:59 00:59 00:59 MCV 96 H MCH 33 H Lymph % (Auto) 38.0 H POC ABG pCO2 VBG pH 7.227 L Carbon Dioxide 19 L Glucose 276 H POC Glucose Hemoglobin A1c Calcium 8.0 L Total Protein Albumin Triglycerides Cholesterol HDL Cholesterol Ur Specific [place] Urine WBC (Auto) 07/29/17 07/29/17 07/29/17 02:54 04:08 04:08 MCV MCH Lymph % (Auto) POC ABG pCO2 VBG pH Carbon Dioxide 19 L Glucose 234 H POC Glucose 244 H Hemoglobin A1c Calcium Total Protein 5.6 L Albumin 3.4 L Triglycerides Cholesterol HDL Cholesterol Ur Specific [place] Urine WBC (Auto) 07/29/17 07/29/17 07/29/17 05:21 06:16 07:28 MCV MCH Lymph % (Auto) POC ABG pCO2 VBG pH Carbon Dioxide 21 L Glucose 144 H POC Glucose 148 H 123 H Hemoglobin A1c Calcium Total Protein Albumin Triglycerides Cholesterol HDL Cholesterol Ur Specific [place] Urine WBC (Auto) 07/29/17 07/29/17 07/29/17 07:52 09:13 09:59 MCV MCH Lymph % (Auto) POC ABG pCO2 VBG pH Carbon Dioxide Glucose POC Glucose 131 H 154 H 168 H Hemoglobin A1c Calcium Total Protein Albumin Triglycerides Cholesterol HDL Cholesterol Ur Specific [place] Urine WBC (Auto) 07/29/17 07/29/17 07/29/17 11:15 12:05 13:28 MCV MCH Lymph % (Auto) POC ABG pCO2 VBG pH Carbon Dioxide Glucose POC Glucose 168 H 163 H 165 H Hemoglobin A1c Calcium Total Protein Albumin Triglycerides Cholesterol HDL Cholesterol Ur Specific [place] Urine WBC (Auto) 07/29/17 07/29/17 07/29/17 13:56 16:07 22:26 MCV MCH Lymph % (Auto) POC ABG pCO2 VBG pH Carbon Dioxide Glucose POC Glucose 158 H 230 H 274 H Hemoglobin A1c Calcium Total Protein Albumin Triglycerides Cholesterol HDL Cholesterol Ur Specific [place] Urine WBC (Auto) 07/30/17 07/30/17 07/30/17 05:53 05:53 06:14 MCV MCH Lymph % (Auto) POC ABG pCO2 VBG pH Carbon Dioxide Glucose POC Glucose 172 H Hemoglobin A1c 17.0 H Calcium Total Protein Albumin Triglycerides 252 H Cholesterol 254 H HDL Cholesterol 76 H Ur Specific [place] Urine WBC (Auto) 07/30/17 07/30/17 07/30/17 11:20 21:39 Unknown MCV MCH Lymph % (Auto) POC ABG pCO2 VBG pH Carbon Dioxide Glucose POC Glucose 266 H 220 H Hemoglobin A1c Calcium Total Protein Albumin Triglycerides Cholesterol HDL Cholesterol Ur Specific [place] 1.036 H Urine WBC (Auto) 9.0 H 07/31/17 07/31/17 07/31/17 16:17 16:32 23:11 MCV MCH Lymph % (Auto) POC ABG pCO2 34.5 L VBG pH Carbon Dioxide Glucose POC Glucose 63 L 261 H Hemoglobin A1c Calcium Total Protein Albumin Triglycerides Cholesterol HDL Cholesterol Ur Specific [place] Urine WBC (Auto)
[2017-08-01] MEDS: HEPARIN SUB-Q SCH ×2 (07:38→09:22)
[2017-08-01] MEDS: FLAGYL 500 MG/100 ML 500 MG/100 ML BAG IV SCH (09:22)
[2017-08-01] MEDS: NOVOLOG SUB-Q SCH ×2 (09:38→12:44)
[2017-08-01] MEDS: REGLAN PO SCH ×2 (09:39→12:42)
[2017-08-01] MEDS: GLUCOPHAGE PO SCH (09:39)
[2017-08-01] MEDS: PROTONIX PO SCH (09:43)
[2017-08-01] MEDS: CARDIZEM CD PO SCH (09:44)
[2017-08-01 09:45] VITALS: BP 104/64
--- NOTE | 2017-08-01 09:45 | Nuclear Medicine Report ---
NUCLEAR MEDICINE GASTRIC EMPTYING SCAN HISTORY: Nausea and vomiting. FINDINGS: Anterior abdominal scintigraphic images were obtained after ingestion of 1.0 mCi of technetium 99m sulfur colloid and oatmeal. Half life for gastric emptying measured 106 minutes. Normal range 60-120 minutes. There is no scintigraphic evidence for reflux disease. IMPRESSION: Normal gastric emptying.
--- NOTE | 2017-08-01 11:27 | Discharge Summary ---
Providers - Providers Date of Admission: 07/29/17 04:51 Date of discharge: 08/01/17 Attending physician: JULIA SARABIA MD 07/29/17 04:51 Consult to Physician [CONS] Routine Consulting Provider: LAVERNE MACK Reason For Exam: DKA, ICU admission Place consult to:: Dr. Mack Notified:: Answering Service Phone number called:: [phone] Was contact made?: Yes If yes, spoke with:: Elvin 07/31/17 19:48 Consult to Dietitian/Nutrition [CONS] Routine Physician Instructions: Reason For Exam: Reason for Consult: Diet education Hospitalization Condition: Serious Exam - Constitutional Vitals: Temp Pulse Resp BP Pulse Ox 98.1 F 92 H 18 104/64 98 07/31/17 20:22 08/01/17 09:44 08/01/17 03:00 08/01/17 09:44 07/31/17 20:22 Plan Follow up with: PRANEETH GEE [Other] - 3-5 Days Prescriptions: AtorvaSTATin 40 mg PO DAILY #30 Insulin Glargine,Hum.rec.anlog [Lantus] 95 units SQ HS 30 Days vial Insulin Regular, Human Inj [NovoLIN R Inj] 0 unit SQ AC #1 vial metFORMIN [Glucophage] 1,000 mg PO BIDDIAB #60 tablet Metoclopramide HCl [Reglan TAB] 10 mg PO ACHS PRN 30 Days tablet PRN Reason: Nausea Ondansetron [Zofran TAB] 4 mg PO Q6H PRN #30 tablet PRN Reason: Vomiting
[2017-08-01] MEDS: FLONASE NS SCH (12:08)
[2017-08-01] MEDS: TOPROL XL PO SCH (12:08)
--- NOTE | 2017-08-01 14:10 | Progress Note ---
Assessment and Plan DKA / poorly controlled Diabetes Atrial Fibrillation Hyperlipidemia HTN Likely Gastroparesis Diarrhea - continue glycemic control withh SSI & levemir - continue prn zofran - complete GI w/up for gastroparesis - continue cardizem for rate control - continue anti-HTNsives per attending - GI & VTE prophylaxis - Flu & pneumovax per protocol - diabetic education prior to discharge ....re-evaluate in am & prn Subjective Date of service: 08/01/17 Principal diagnosis: DKA; Atrial Fibrilation Interval history: Patient is seen today for: DKA; Atrial Fibrilation Seen and examined at bedside; 24hour events reviewed; nursing and respiratory care staff consulted; no adverse overnight events reported to me; doing well; no N/V/F/C; sugars better controlled; denies palpitations Objective Vital Signs - 12hr 08/01/17 08/01/17 08/01/17 03:00 09:44 12:08 Pulse Rate 92 H 92 H Respiratory 18 Rate Blood Pressure 104/64 104/64 Constitutional: no acute distress, alert Eyes: non-icteric ENT: oropharynx moist Neck: supple, no lymphadenopathy, no JVD, other (no thyromegaly) Effort: normal Ascultation: Bilateral: clear Percussion: Bilateral: not dull Cardiovascular: irregular rhythm, other (no rubs or murmurs) Gastrointestinal: normoactive bowel sounds, soft, non-tender, non-distended Integumentary: normal Extremities: no cyanosis, no edema, pulses normal, no ischemia or petechiae Neurologic: normal mental status, non-focal exam, pupils equal and round, CN II- XII normal Psychiatric: mood appropriate, affect normal CBC and BMP: 07/29/17 00:59 07/29/17 07:28 ABG, PT/INR, D-dimer: ABG POC ABG pH 7.418 (7.35-7.45) 07/31/17 16:17 POC ABG pCO2 34.5 (35-45) L 07/31/17 16:17 POC ABG pO2 92 (80-105) 07/31/17 16:17 POC ABG HCO3 22.3 07/31/17 16:17 POC ABG Total CO2 23 07/31/17 16:17 POC ABG O2 Sat 97 07/31/17 16:17 Abnormal lab findings: Abnormal Labs 07/29/17 07/29/17 07/29/17 00:59 00:59 00:59 MCV 96 H MCH 33 H Lymph % (Auto) 38.0 H POC ABG pCO2 VBG pH 7.227 L Carbon Dioxide 19 L Glucose 276 H POC Glucose Hemoglobin A1c Calcium 8.0 L Total Protein Albumin Triglycerides Cholesterol HDL Cholesterol Ur Specific [place] Urine WBC (Auto) 07/29/17 07/29/17 07/29/17 02:54 04:08 04:08 MCV MCH Lymph % (Auto) POC ABG pCO2 VBG pH Carbon Dioxide 19 L Glucose 234 H POC Glucose 244 H Hemoglobin A1c Calcium Total Protein 5.6 L Albumin 3.4 L Triglycerides Cholesterol HDL Cholesterol Ur Specific [place] Urine WBC (Auto) 07/29/17 07/29/17 07/29/17 05:21 06:16 07:28 MCV MCH Lymph % (Auto) POC ABG pCO2 VBG pH Carbon Dioxide 21 L Glucose 144 H POC Glucose 148 H 123 H Hemoglobin A1c Calcium Total Protein Albumin Triglycerides Cholesterol HDL Cholesterol Ur Specific [place] Urine WBC (Auto) 07/29/17 07/29/17 07/29/17 07:52 09:13 09:59 MCV MCH Lymph % (Auto) POC ABG pCO2 VBG pH Carbon Dioxide Glucose POC Glucose 131 H 154 H 168 H Hemoglobin A1c Calcium Total Protein Albumin Triglycerides Cholesterol HDL Cholesterol Ur Specific [place] Urine WBC (Auto) 07/29/17 07/29/17 07/29/17 11:15 12:05 13:28 MCV MCH Lymph % (Auto) POC ABG pCO2 VBG pH Carbon Dioxide Glucose POC Glucose 168 H 163 H 165 H Hemoglobin A1c Calcium Total Protein Albumin Triglycerides Cholesterol HDL Cholesterol Ur Specific [place] Urine WBC (Auto) 07/29/17 07/29/17 07/29/17 13:56 16:07 22:26 MCV MCH Lymph % (Auto) POC ABG pCO2 VBG pH Carbon Dioxide Glucose POC Glucose 158 H 230 H 274 H Hemoglobin A1c Calcium Total Protein Albumin Triglycerides Cholesterol HDL Cholesterol Ur Specific [place] Urine WBC (Auto) 07/30/17 07/30/17 07/30/17 05:53 05:53 06:14 MCV MCH Lymph % (Auto) POC ABG pCO2 VBG pH Carbon Dioxide Glucose POC Glucose 172 H Hemoglobin A1c 17.0 H Calcium Total Protein Albumin Triglycerides 252 H Cholesterol 254 H HDL Cholesterol 76 H Ur Specific [place] Urine WBC (Auto) 07/30/17 07/30/17 07/30/17 11:20 21:39 Unknown MCV MCH Lymph % (Auto) POC ABG pCO2 VBG pH Carbon Dioxide Glucose POC Glucose 266 H 220 H Hemoglobin A1c Calcium Total Protein Albumin Triglycerides Cholesterol HDL Cholesterol Ur Specific [place] 1.036 H Urine WBC (Auto) 9.0 H 07/31/17 07/31/17 07/31/17 16:17 16:32 23:11 MCV MCH Lymph % (Auto) POC ABG pCO2 34.5 L VBG pH Carbon Dioxide Glucose POC Glucose 63 L 261 H Hemoglobin A1c Calcium Total Protein Albumin Triglycerides Cholesterol HDL Cholesterol Ur Specific [place] Urine WBC (Auto) Chest x-ray: image reviewed
--- NOTE | 2017-08-02 04:05 | Consultation ---
CONSULTING PHYSICIAN: Dr. Morillo. REASON FOR CONSULTATION: Diabetic ketoacidosis. CHIEF COMPLAINT AND HISTORY OF PRESENT ILLNESS: The patient is a 52-year-old -[place] male with past medical history significant for diabetes as well as atrial fibrillation, who presented to the Emergency Room complaining of 2 weeks of nausea and vomiting. He stated he had been compliant with his medications. He did admit to drinking more soda than normal and Gatorade. He continued to do that to try and replace his losses from vomiting. He admitted to polyuria or polydipsia. He denied any abdominal pain. Denied fevers or chills. He denied any open wounds or sores on his body. As a result of his continuing malaise and fatigue, he came into the Emergency Room almost certainly knowing that he was probably going to be in DKA. He was evaluated in the ER and indeed, it was found to be in diabetic ketoacidosis requiring IV insulin therapy and we were asked to assist with management. When I stopped by to see him, he was resting poorly peacefully. No acute nausea and vomiting. No chest pains, no palpitations. It is really is as much of the history of presentation as I do. I should mention he had denied tobacco use or abuse history whatsoever. PAST MEDICAL HISTORY: Diabetes, atrial fibrillation, hyperlipidemia. PAST SURGICAL HISTORY: Denies. MEDICATIONS: He was on at the time I stopped by to see him was reviewed. Pertinent medications included the following, he was n.p.o. He had been on IV insulin therapy. I believe going about 4 units per hour when I saw him. He had been on heparin 5000 units subcutaneous q.8 hours. He was on a D5 half NS drip with K. He was on Zofran 4 mg IV q.8 hours p.r.n. nausea and vomiting. Tylenol 650 mg p.o. q.4 hours p.r.n. fevers. ALLERGIES: No known drug allergies. DIET: Denies acute weight loss or gain in the preceding few weeks to months. Appears well-built. FAMILY AND SOCIAL HISTORY: Lives in the community. Denies alcohol, tobacco, or illicit drug use or abuse. Family history, otherwise noncontributory. REVIEW OF SYSTEMS: No loss of consciousness. No new onset seizures. No new onset focal weakness. Denies gross hematochezia or melena. Denied gross hematuria, no hematemesis. He had some emesis. Complete 13 system review of systems obtained. Pertinent positives and/or negatives as in body of the history above, otherwise they are noncontributory. PHYSICAL EXAMINATION: VITAL SIGNS: At presentation, he was afebrile, temperature 98.0 Fahrenheit, pulse 90, respiratory rate 20, blood pressure 105/73, oxygen sats 100%, inspired oxygen concentration was not recorded. GENERAL: Well-built -[place] male, looks his stated age, normocephalic, atraumatic, talking to me in full sentences. HEAD, EYES, EARS, NOSE AND THROAT: He is anicteric. No conjunctival erythema. No gross jugular venous distention, no thyromegaly. Oropharynx is moist, is a Mallampati #2 LUNGS: Auscultation of both lung sanders unremarkable. Lungs are clear bilaterally. No wheezing. HEART: Heart sounds 1 and 2 are heard. Irregular rate and rhythm at the time of my evaluation. No rubs, no murmurs. ABDOMEN: Soft, full, bowel sounds are positive, nontender, no palpable hepatosplenomegaly. EXTREMITIES: Without overt digital clubbing, cyanosis, or pedal edema. Dorsalis pedis pulses are palpable bilaterally. NEUROLOGIC: The pupils are equal, round, and reactive to light. Extraocular muscle movements are intact. He moves all 4 extremities spontaneously. No fasciculations. No spasticity. The skin is of normal turgor. No cellulitis, no rash. LABORATORY DATA: From my review are as follows: Admission white cell count 5700 with a hemoglobin of 13.7, hematocrit of 40.2, platelet count of 205. No band forms. Venous blood gas showed a pH of 7.23. Serum sodium was 139, potassium was 4.2, chloride 101, bicarbonate was 19, BUN 14, creatinine 1.1, and glucose was 276. Liver function tests essentially within normal limits. Albumin was low at 2.5. RADIOGRAPHIC STUDIES: Chest x-ray was done. I have reviewed the chest x-ray. I also reviewed at the time, the radiologist's interpretation. Essentially, a normal chest x-ray for age. No gross pneumothorax, no gross bony fracture. ASSESSMENT: 1. Poorly controlled diabetes with early ketoacidosis. 2. Atrial fibrillation without rapid ventricular response. 3. Hypertension. 4. Element of medication noncompliance. PLAN: Continue intravenous insulin, wean off intravenous insulin per diabetic ketoacidosis protocol. The anion gap looks to have closed. At this point, we will institute him on long-acting insulin as well as continue with sliding scale. No acute indication for antibiotic therapy at this point. He is appropriately on deep venous thrombosis prophylaxis. Atrial fibrillation needs to be evaluated by Cardiology to see if he needs to be on full anticoagulation. We will reintroduce Cardizem once he is taken orally for management of atrial fibrillation. He will be placed on gastrointestinal prophylaxis. Flu and pneumonia vaccination will be per protocol. If he was downgraded to the telemetry floor and without Intensive Care Unit admission. Thank you very much for the consult. We will follow along and make further recommendations as picture progresses/becomes clearer. JOB# [id number] JANIA/JAYSHREE
[2017-08-02] MEDS ORDERED: PROTONIX PO SCH (10:00)
== END 2017-08-01 16:00 | disposition home or self-care (01) | DRG 74 ==
LOC: ED 23:56 → CC1 07-29 04:51 → 3A 07-29 17:48
PROVIDERS: ADMIT Internal Medicine; ATTEND Internal Medicine
PROC: 4A033R1 Measurement of Arterial Saturation, Peripheral, Percutaneous Approach (ICD-10-PCS; principal; 2017-07-31)
DX: E11.43 Type 2 diabetes mellitus with diabetic autonomic (poly)neuropathy (principal); I48.91 Unspecified atrial fibrillation; E11.10 Type 2 diabetes mellitus with ketoacidosis without coma; E86.0 Dehydration; E11.9 Type 2 diabetes mellitus without complications; E78.5 Hyperlipidemia, unspecified; Z79.4 Long term (current) use of insulin; R19.7 Diarrhea, unspecified; K31.84 Gastroparesis
CPT/HCPCS: 36415; 36600; 71045; 78264; 80048; 80061; 80074; 81001; 82140; 82803; 82805; 82962; 83036; 83690; 83735; 84100; 85007; 85025; 87045; 87177; 96365; A9270-GY; A9541; J1644; J1815; J1818